=== PATIENT | male | born 1975 | race Caucasian/White ===

== ENCOUNTER 2022-10-20 13:06 | Emergency (ER) | payer SELFPAY ==
[~2022-10-20] VITALS: Ht 198.1 cm; Wt 102.6 kg
[2022-10-20] MEDS ORDERED: VIBRAMYCIN100 M2 PO (14:11)
[2022-10-20] MEDS ORDERED: NAPROXEN500 MG PO (14:11)
[2022-10-20] MEDS ORDERED: TRAMADOL HYDROC50 M1 PO (14:11)
[2022-10-20 14:23] VITALS: BP 139/61
== END 2022-10-20 14:30 | disposition home or self-care (01) | DRG 603 ==
LOC: ED 13:06
DX: L03.112 Cellulitis of left axilla (principal)